=== PATIENT | female | born 1970 | race Asian ===

== ENCOUNTER 2018-05-02 05:40 | Day surgery (SDC) | payer OTHER ==
[2018-05-02] VITALS (8 sets, daily range): BP systolic 92–137; BP diastolic 42–77
[~2018-05-02] VITALS: Ht 172.7 cm; Wt 71.9 kg
[~2018-05-02 05:40] MED LIST: ASCO250T6 PO; BIRTH CONTROL; CETI10TA86 PO; CHOL200013 PO; FISH1CAP49 PO; SIMV20TA6 PO; SIMV40TA5 PO; VITA100C24 PO; VITA1TAB39 PO
[2018-05-02] MEDS ORDERED: SODIUM CHLORIDE 0.9% 1000ML 1,000 ML IV ONE (06:18)
[2018-05-02] MEDS ORDERED: PROPOFOL 10 MG/ML 20ML VIAL IV ONE (06:32)
== END 2018-05-02 07:30 | disposition home or self-care (01) ==
LOC: DAH 05:40 → ENDO 05:40
PROVIDERS: ATTEND Internal Medicine
DX: Z12.11 Encounter for screening for malignant neoplasm of colon (principal); K63.5 Polyp of colon; K62.1 Rectal polyp; E78.5 Hyperlipidemia, unspecified; Z79.899 Other long term (current) drug therapy; Z88.0 Allergy status to penicillin; E66.9 Obesity, unspecified; K64.0 First degree hemorrhoids
CPT/HCPCS: 45380; 45385; 88305; A4606; J2704; J7030

== ENCOUNTER → 2023-01-19 | Outpatient (CLI) | payer OTHER ==
[~2023-01-19] MED LIST changes: +ASCO250T24 PO; -ASCO250T6 PO; -CETI10TA86 PO; +CETI10TA87 PO; +GADOTERATE MEGLUMINE 10 MMOL/20 ML VIAL IV ONE; +SIMV-43 PO; +SIMV-46 PO; -SIMV20TA6 PO; -SIMV40TA5 PO; -VITA100C24 PO; +VITA100C26 PO
== END | disposition home or self-care (01) ==
LOC: RAH 12:37
PROVIDERS: ATTEND Obstetrics & Gynecology
DX: Z15.01 Genetic susceptibility to malignant neoplasm of breast (principal)
CPT/HCPCS: 77049; A9575

== ENCOUNTER 2023-08-16 07:58 | Day surgery (SDC) | payer OTHER ==
[~2023-08-16] VITALS: Ht 170.2 cm; Wt 74.8 kg
[2023-08-16] VITALS (11 sets, daily range): BP systolic 140–178; BP diastolic 74–98; PULSE 64–77; RESP 10–17
[2023-08-16] MEDS: 0.9%NACL 1000ML 1,000 ML IV ONE (09:03)
[2023-08-16] MEDS ORDERED: PROPOFOL 10 MG/ML 20ML VIAL IV ONE (10:29)
[2023-08-16] MEDS ORDERED: LIDOCAINE HCL 400MG/20ML VIAL ONE (10:30)
== END 2023-08-16 12:05 | disposition home or self-care (01) ==
LOC: ENDO 07:58 → DAH 07:58 → ENDO 12:05
PROVIDERS: ATTEND Internal Medicine
DX: Z12.11 Encounter for screening for malignant neoplasm of colon (principal); D12.0 Benign neoplasm of cecum; D12.5 Benign neoplasm of sigmoid colon; K62.1 Rectal polyp; K64.0 First degree hemorrhoids; E78.5 Hyperlipidemia, unspecified; R93.5 Abnormal findings on diagnostic imaging of other abdominal regions, including retroperitoneum; Z15.01 Genetic susceptibility to malignant neoplasm of breast; Z88.0 Allergy status to penicillin; Z82.49 Family history of ischemic heart disease and other diseases of the circulatory system; Z86.010 Personal history of colon polyps; Z79.899 Other long term (current) drug therapy; Z98.890 Other specified postprocedural states
CPT/HCPCS: 81025; 43259; 45380; 45385; J3490; J7030 ×2; J2704; A4620; A4215 ×2; A4223; A7002; A4222; A4221; A4663; A4606